=== PATIENT | female | born 1980 | race Caucasian/White ===

== ENCOUNTER → 2024-04-29 | Emergency (ER) | payer MEDICAID, OTHER ==
[~2024-04-29] VITALS: Ht 157.5 cm; Wt 81.6 kg
[~2024-04-29] MED LIST: ALBU18HF2 INH; BENZ-13 PO
[2024-04-29 10:13] VITALS: BP 139/86; TEMP 98.6
[2024-04-29 10:35] VITALS: O2SAT 0
[2024-04-29] MEDS: BENZONATATE 100 MG CAPSULE PO PRN (10:35)
== END | disposition home or self-care (01) ==
LOC: ER 10:18
DX: J01.90 Acute sinusitis, unspecified (principal); J45.901 Unspecified asthma with (acute) exacerbation; B97.89 Other viral agents as the cause of diseases classified elsewhere; H92.01 Otalgia, right ear; Z20.822 Contact with and (suspected) exposure to COVID-19